=== PATIENT | female | born 1960 | race African-American/Black ===

== ENCOUNTER 2017-05-16 20:39 | Emergency (ER) | payer MEDICARE, OTHER ==
[2017-05-16 21:22] LABS: ADD MAN DIFF? NO
[2017-05-16 21:27] LABS: BASO # 0.1 x10^3/uL (0.0-0.2); BASO % 1 % (0-3); EOS # 0.2 x10^3/uL (0.0-0.7); EOS % 2 % (0-3); HEMATOCRIT 39.7 % (36.0-47.0); LYMPH % 27 % (24-48); MEAN CORPUSCULAR HEMOGLOBIN 28 pg (25-35); MEAN CORPUSCULAR HGB CONC 33 g/dL (31-37); MEAN CORPUSCULAR VOLUME 86 fL (79-100); MONO # 0.7 x10^3/uL (0.0-1.1); MONO % 6 % (0-9); NEUT # 7.1 x10^3uL (1.8-7.7); NEUT % 64 % (31-73); PLATELET COUNT 329 x10^3/uL (140-400); RED BLOOD COUNT 4.62 x10^6/uL (3.50-5.40); RED CELL DISTRIBUTION WIDTH 15.9 % (11.5-14.5); WHITE BLOOD COUNT 11.1 x10^3/uL (4.0-11.0)
[2017-05-16 21:32] LABS: ANION GAP 13 (6-14); BLOOD UREA NITROGEN 30 mg/dL (7-20); BUN/CREATININE RATIO 18 (6-20); CALCIUM 9.5 mg/dL (8.5-10.1); CARBON DIOXIDE 24 mmol/L (21-32); CHLORIDE 103 mmol/L (98-107); CREATININE 1.7 mg/dL (0.6-1.0); GFR 37.8; GLUCOSE 170 mg/dL (70-99); POTASSIUM 4.1 mmol/L (3.5-5.1); SODIUM 140 mmol/L (136-145)
[2017-05-16 21:39] LABS: ALBUMIN 3.6 g/dL (3.4-5.0); ALBUMIN/GLOBULIN RATIO 0.8 (1.0-1.7); ALK PHOS 127 U/L (46-116); ALT (SGPT) 18 U/L (14-59); AST (SGOT) 15 U/L (15-37); LIPASE 98 U/L (73-393); TOTAL BILIRUBIN 0.2 mg/dL (0.2-1.0)
[2017-05-16 21:41] LABS: TROPONINI 0.019 ng/mL (0.000-0.055)
[2017-05-16 21:46] LABS: CKMB INDEX 1.7 % (0-4); CKMB MASS 1.3 ng/mL (0.0-3.6); CREATINE KINASE 77 U/L (26-192)
[2017-05-16] MEDS: IV NORMAL SALINE 1000ML BAG 1,000 ML IV (21:48)
[2017-05-16] MEDS: ONDANSETRON PF 4 MG/2 ML VIAL. IV (21:49)
[2017-05-16] MEDS: fentaNYL PF VIAL 100 MCG/2 ML VIAL IV (21:51)
[2017-05-16 22:02] LABS: BILIRUBIN,URINE SMALL (NEG); GLUCOSE,URINE NEGATIVE (NEG); NITRITE,URINE NEGATIVE (NEG); PROTEIN,URINE NEGATIVE (NEG-TRACE)
[2017-05-16 22:13] LABS: CLARITY,URINE HAZY; COLOR,URINE DK YELLOW
[2017-05-16 22:16] LABS: BACTERIA,URINE MODERATE /HPF (0-FEW); HYALINE CASTS, URINE MODERATE /HPF; RBC,URINE 0 /HPF (0-2); SQUAMOUS EPITHELIAL CELL,UR MOD /LPF
== END 2017-05-16 22:50 | disposition home or self-care (01) ==
LOC: ER 20:39
DX: R10.11 Right upper quadrant pain (principal); K21.9 Gastro-esophageal reflux disease without esophagitis; I10 Essential (primary) hypertension; K58.9 Irritable bowel syndrome, unspecified; Z90.710 Acquired absence of both cervix and uterus; Z88.8 Allergy status to other drugs, medicaments and biological substances
CPT/HCPCS: 36415; 74176; 80053; 81001; 82553; 83690; 84484; 85025; 87086; 96361; 96374; 96375; 99285-25; J2405; J3010; J7030

== ENCOUNTER → 2017-05-22 | Outpatient (CLI) | payer MEDICARE, OTHER | END | disposition home or self-care (01) | LOC: US 09:24 | DX: K76.0 Fatty (change of) liver, not elsewhere classified (principal) | CPT/HCPCS: 76705 ==

== ENCOUNTER 2017-05-29 14:55 | Inpatient (IN) | payer OTHER, MEDICARE ==
[2017-05-29 16:24] LABS: BILIRUBIN,URINE SMALL (NEG); CLARITY,URINE CLEAR; COLOR,URINE YELLOW; GLUCOSE,URINE NEGATIVE (NEG); NITRITE,URINE NEGATIVE (NEG); PROTEIN,URINE NEGATIVE (NEG-TRACE)
[2017-05-29] MEDS: ONDANSETRON PF 4 MG/2 ML VIAL. IV ×2 (16:26→21:21)
[2017-05-29] MEDS: fentaNYL PF VIAL 100 MCG/2 ML VIAL IV ×2 (16:27→21:21)
[2017-05-29] MEDS: KETOROLAC 30 MG/ML INJ. IV (16:27)
[2017-05-29] MEDS: IV NORMAL SALINE 1000ML BAG 1,000 ML IV ×2 (16:28→17:53)
[2017-05-29 16:39] LABS: BACTERIA,URINE MODERATE /HPF (0-FEW); RBC,URINE 0 /HPF (0-2); SQUAMOUS EPITHELIAL CELL,UR MOD /LPF
[2017-05-29 16:52] LABS: ADD MAN DIFF? NO
[2017-05-29 16:53] LABS: BASO # 0.1 x10^3/uL (0.0-0.2); BASO % 1 % (0-3); EOS # 0.1 x10^3/uL (0.0-0.7); EOS % 1 % (0-3); HEMATOCRIT 41.5 % (36.0-47.0); HEMOGLOBIN 13.5 g/dL (12.0-15.5); LYMPH % 25 % (24-48); MEAN CORPUSCULAR HEMOGLOBIN 28 pg (25-35); MEAN CORPUSCULAR HGB CONC 33 g/dL (31-37); MEAN CORPUSCULAR VOLUME 87 fL (79-100); MONO % 9 % (0-9); NEUT % 66 % (31-73); PLATELET COUNT 354 x10^3/uL (140-400); RED BLOOD COUNT 4.79 x10^6/uL (3.50-5.40); RED CELL DISTRIBUTION WIDTH 15.7 % (11.5-14.5); WHITE BLOOD COUNT 12.2 x10^3/uL (4.0-11.0)
[2017-05-29 17:04] LABS: ANION GAP 11 (6-14); BLOOD UREA NITROGEN 41 mg/dL (7-20); BUN/CREATININE RATIO 21 (6-20); CALCIUM 9.5 mg/dL (8.5-10.1); CARBON DIOXIDE 26 mmol/L (21-32); CHLORIDE 102 mmol/L (98-107); GFR 31.3; GLUCOSE 97 mg/dL (70-99); POTASSIUM 4.3 mmol/L (3.5-5.1); SODIUM 139 mmol/L (136-145)
[2017-05-29 17:11] LABS: ALBUMIN 3.6 g/dL (3.4-5.0); ALBUMIN/GLOBULIN RATIO 0.8 (1.0-1.7); ALK PHOS 134 U/L (46-116); ALT (SGPT) 36 U/L (14-59); AST (SGOT) 29 U/L (15-37); LIPASE 124 U/L (73-393); MAGNESIUM 1.9 mg/dL (1.8-2.4); TOTAL BILIRUBIN 0.4 mg/dL (0.2-1.0); TOTAL PROTEIN 8.3 g/dL (6.4-8.2)
[2017-05-29 17:14] LABS: TROPONINI < 0.017 ng/mL (0.000-0.055)
[2017-05-29] MEDS ORDERED: cefTRIAXone SODIUM 2 GM in IV DEXTROSE 5% 100 ML IV (17:15)
[2017-05-29] MEDS: LACTOBACILLUS RHAMNOSUS GG 1 CAPSULE. PO (19:56)
[2017-05-30 04:46] LABS: ADD MAN DIFF? NO
[2017-05-30 04:52] LABS: BASO # 0.1 x10^3/uL (0.0-0.2); BASO % 1 % (0-3); EOS # 0.2 x10^3/uL (0.0-0.7); EOS % 2 % (0-3); HEMOGLOBIN 11.6 g/dL (12.0-15.5); LYMPH # 3.2 x10^3/uL (1.0-4.8); LYMPH % 34 % (24-48); MEAN CORPUSCULAR HEMOGLOBIN 29 pg (25-35); MEAN CORPUSCULAR HGB CONC 33 g/dL (31-37); MEAN CORPUSCULAR VOLUME 87 fL (79-100); MONO # 0.8 x10^3/uL (0.0-1.1); MONO % 8 % (0-9); NEUT # 5.4 x10^3uL (1.8-7.7); NEUT % 56 % (31-73); PLATELET COUNT 287 x10^3/uL (140-400); RED BLOOD COUNT 4.05 x10^6/uL (3.50-5.40); RED CELL DISTRIBUTION WIDTH 15.8 % (11.5-14.5); WHITE BLOOD COUNT 9.6 x10^3/uL (4.0-11.0)
[2017-05-30 05:21] LABS: ANION GAP 10 (6-14); BLOOD UREA NITROGEN 36 mg/dL (7-20); CALCIUM 8.5 mg/dL (8.5-10.1); CARBON DIOXIDE 23 mmol/L (21-32); CHLORIDE 107 mmol/L (98-107); CREATININE 1.7 mg/dL (0.6-1.0); GFR 37.8; GLUCOSE 95 mg/dL (70-99); POTASSIUM 4.1 mmol/L (3.5-5.1); SODIUM 140 mmol/L (136-145)
[2017-05-30] MEDS: LACTOBACILLUS RHAMNOSUS GG 1 CAPSULE. PO ×2 (07:58→21:17)
[2017-05-30] MEDS: IV NORMAL SALINE 1000ML BAG 1,000 ML IV ×2 (11:19→22:00)
[2017-05-30] MEDS: ONDANSETRON PF 4 MG/2 ML VIAL. IV (11:23)
[2017-05-30 11:29] LABS: SEDIMENTATION RATE 22 (0-25)
[2017-05-30] MEDS: SINCALIDE IV (15:10)
[2017-05-30] MEDS: NORMAL SALINE IV (15:10)
[2017-05-30] MEDS: levETIRAcetam 500 MG TABLET PO (17:17)
[2017-05-30] MEDS: cefTRIAXone IV Push 1 GM VIAL. IVP (17:18)
[2017-05-30] MEDS: oxyCODONE/APAP 5/325 1 TAB TABLET PO (18:33)
[2017-05-30] MEDS: GABAPENTIN 300 MG CAPSULE. PO (21:17)
[2017-05-30] MEDS: busPIRone 10 MG TABLET. PO (21:17)
[2017-05-30] MEDS: DICYCLOMINE HCL 10 MG CAPSULE PO (21:17)
[2017-05-31] MEDS: IV NORMAL SALINE 1000ML BAG 1,000 ML IV ×3 (06:12→21:24)
[2017-05-31] MEDS: busPIRone 10 MG TABLET. PO ×2 (07:51→20:48)
[2017-05-31] MEDS: PANTOPRAZOLE 40 MG TABLET.DR. PO (07:51)
[2017-05-31] MEDS: LACTOBACILLUS RHAMNOSUS GG 1 CAPSULE. PO ×2 (07:52→20:48)
[2017-05-31] MEDS: GABAPENTIN 300 MG CAPSULE. PO ×3 (07:52→20:47)
[2017-05-31] MEDS: DICYCLOMINE HCL 10 MG CAPSULE PO ×3 (07:52→20:47)
[2017-05-31] MEDS: levETIRAcetam 500 MG TABLET PO ×2 (07:52→20:47)
[2017-05-31 11:46] LABS: ADD MAN DIFF? NO
[2017-05-31] MEDS: ONDANSETRON PF 4 MG/2 ML VIAL. IV (11:51)
[2017-05-31 11:52] LABS: BASO % 0 % (0-3); EOS # 0.2 x10^3/uL (0.0-0.7); EOS % 3 % (0-3); HEMATOCRIT 34.9 % (36.0-47.0); HEMOGLOBIN 11.3 g/dL (12.0-15.5); LYMPH % 30 % (24-48); MEAN CORPUSCULAR HEMOGLOBIN 28 pg (25-35); MEAN CORPUSCULAR HGB CONC 32 g/dL (31-37); MEAN CORPUSCULAR VOLUME 87 fL (79-100); MONO # 0.7 x10^3/uL (0.0-1.1); MONO % 10 % (0-9); NEUT # 3.9 x10^3uL (1.8-7.7); NEUT % 58 % (31-73); PLATELET COUNT 290 x10^3/uL (140-400); RED BLOOD COUNT 4.04 x10^6/uL (3.50-5.40); RED CELL DISTRIBUTION WIDTH 15.4 % (11.5-14.5); WHITE BLOOD COUNT 6.8 x10^3/uL (4.0-11.0)
[2017-05-31 12:04] LABS: ALBUMIN 2.7 g/dL (3.4-5.0); ALBUMIN/GLOBULIN RATIO 0.7 (1.0-1.7); ALK PHOS 103 U/L (46-116); ALT (SGPT) 27 U/L (14-59); ANION GAP 9 (6-14); AST (SGOT) 24 U/L (15-37); BLOOD UREA NITROGEN 31 mg/dL (7-20); BUN/CREATININE RATIO 21 (6-20); CALCIUM 8.1 mg/dL (8.5-10.1); CARBON DIOXIDE 23 mmol/L (21-32); CHLORIDE 109 mmol/L (98-107); CREATININE 1.5 mg/dL (0.6-1.0); GFR 43.6; GLUCOSE 96 mg/dL (70-99); POTASSIUM 4.9 mmol/L (3.5-5.1); SODIUM 141 mmol/L (136-145); TOTAL BILIRUBIN 0.2 mg/dL (0.2-1.0); TOTAL PROTEIN 6.4 g/dL (6.4-8.2)
[2017-05-31] MEDS: POLYETHYLENE GLYCOL 3350 17 GM PACKET. PO (14:13)
[2017-05-31] MEDS ORDERED: MAGNESIUM HYDROXIDE 2,400 MG/30 ML ORAL.SUSP. PO (18:15)
[2017-05-31] MEDS: oxyCODONE/APAP 5/325 1 TAB TABLET PO (19:16)
[2017-05-31] MEDS: SENNOSIDES/DOCUSATE 8.6/50MG TABLET. PO (20:47)
[2017-06-01] MEDS: ONDANSETRON PF 4 MG/2 ML VIAL. IV ×2 (02:46→15:55)
[2017-06-01] MEDS: oxyCODONE/APAP 5/325 1 TAB TABLET PO ×2 (03:06→22:03)
[2017-06-01] MEDS: IV NORMAL SALINE 1000ML BAG 1,000 ML IV (05:06)
[2017-06-01 06:34] LABS: ADD MAN DIFF? NO
[2017-06-01 06:41] LABS: BASO # 0.1 x10^3/uL (0.0-0.2); BASO % 1 % (0-3); EOS # 0.2 x10^3/uL (0.0-0.7); EOS % 3 % (0-3); HEMATOCRIT 32.8 % (36.0-47.0); HEMOGLOBIN 10.6 g/dL (12.0-15.5); LYMPH # 2.6 x10^3/uL (1.0-4.8); LYMPH % 35 % (24-48); MEAN CORPUSCULAR HEMOGLOBIN 28 pg (25-35); MEAN CORPUSCULAR HGB CONC 32 g/dL (31-37); MEAN CORPUSCULAR VOLUME 88 fL (79-100); MONO # 0.8 x10^3/uL (0.0-1.1); MONO % 10 % (0-9); NEUT # 3.9 x10^3uL (1.8-7.7); NEUT % 52 % (31-73); PLATELET COUNT 271 x10^3/uL (140-400); RED BLOOD COUNT 3.73 x10^6/uL (3.50-5.40); RED CELL DISTRIBUTION WIDTH 15.8 % (11.5-14.5); WHITE BLOOD COUNT 7.5 x10^3/uL (4.0-11.0)
[2017-06-01 07:08] LABS: ANION GAP 8 (6-14); BLOOD UREA NITROGEN 31 mg/dL (7-20); CALCIUM 8.2 mg/dL (8.5-10.1); CARBON DIOXIDE 24 mmol/L (21-32); CHLORIDE 112 mmol/L (98-107); CREATININE 1.4 mg/dL (0.6-1.0); GFR 47.2; GLUCOSE 148 mg/dL (70-99); POTASSIUM 4.4 mmol/L (3.5-5.1); SODIUM 144 mmol/L (136-145)
[2017-06-01] MEDS: GABAPENTIN 300 MG CAPSULE. PO ×3 (08:28→21:57)
[2017-06-01] MEDS: DICYCLOMINE HCL 10 MG CAPSULE PO ×3 (08:28→22:02)
[2017-06-01] MEDS: LIDOCAINE (700MG/PATCH) PATCH. TD (08:29)
[2017-06-01] MEDS: LACTOBACILLUS RHAMNOSUS GG 1 CAPSULE. PO ×2 (08:29→21:57)
[2017-06-01] MEDS: busPIRone 10 MG TABLET. PO ×2 (08:29→22:03)
[2017-06-01] MEDS: PANTOPRAZOLE 40 MG TABLET.DR. PO (08:29)
[2017-06-01] MEDS: SENNOSIDES/DOCUSATE 8.6/50MG TABLET. PO ×2 (08:30→21:58)
[2017-06-01] MEDS: POLYETHYLENE GLYCOL 3350 17 GM PACKET. PO (08:30)
[2017-06-01] MEDS: BISACODYL 5 MG TABLET.DR. PO (10:30)
[2017-06-01] MEDS: levETIRAcetam 500 MG TABLET PO ×2 (10:30→21:57)
[2017-06-01 11:58] LABS: % SAT IRON 16 % (15-34); IRON,SERUM 38 ug/dL (50-170)
[2017-06-01] MEDS ORDERED: methylPREDNISolone ACETATE 80 MG/ML VIAL. INT ART (17:00)
[2017-06-01] MEDS ORDERED: BUPIVACAINE MPF 0.25% 10 ML VIAL. INT ART (17:00)
[2017-06-01] MEDS: PATCH REMOVAL. MC (22:05)
[2017-06-02] MEDS: ONDANSETRON PF 4 MG/2 ML VIAL. IV ×2 (04:15→12:20)
[2017-06-02 05:17] LABS: ADD MAN DIFF? NO
[2017-06-02 05:29] LABS: BASO # 0.1 x10^3/uL (0.0-0.2); BASO % 1 % (0-3); EOS # 0.2 x10^3/uL (0.0-0.7); EOS % 2 % (0-3); HEMOGLOBIN 10.8 g/dL (12.0-15.5); LYMPH # 2.9 x10^3/uL (1.0-4.8); LYMPH % 37 % (24-48); MEAN CORPUSCULAR HEMOGLOBIN 29 pg (25-35); MEAN CORPUSCULAR HGB CONC 33 g/dL (31-37); MEAN CORPUSCULAR VOLUME 87 fL (79-100); MONO # 0.8 x10^3/uL (0.0-1.1); MONO % 10 % (0-9); NEUT # 3.9 x10^3uL (1.8-7.7); NEUT % 50 % (31-73); PLATELET COUNT 281 x10^3/uL (140-400); RED CELL DISTRIBUTION WIDTH 15.5 % (11.5-14.5); WHITE BLOOD COUNT 7.8 x10^3/uL (4.0-11.0)
[2017-06-02 06:21] LABS: ALBUMIN 2.7 g/dL (3.4-5.0); ALBUMIN/GLOBULIN RATIO 0.7 (1.0-1.7); ALK PHOS 104 U/L (46-116); ALT (SGPT) 33 U/L (14-59); ANION GAP 9 (6-14); AST (SGOT) 23 U/L (15-37); BLOOD UREA NITROGEN 22 mg/dL (7-20); BUN/CREATININE RATIO 16 (6-20); CALCIUM 8.4 mg/dL (8.5-10.1); CARBON DIOXIDE 24 mmol/L (21-32); CHLORIDE 109 mmol/L (98-107); CREATININE 1.4 mg/dL (0.6-1.0); GFR 47.2; GLUCOSE 112 mg/dL (70-99); POTASSIUM 4.4 mmol/L (3.5-5.1); SODIUM 142 mmol/L (136-145); TOTAL BILIRUBIN 0.3 mg/dL (0.2-1.0); TOTAL PROTEIN 6.4 g/dL (6.4-8.2)
[2017-06-02] MEDS: LACTOBACILLUS RHAMNOSUS GG 1 CAPSULE. PO (08:44)
[2017-06-02] MEDS: POLYETHYLENE GLYCOL 3350 17 GM PACKET. PO (08:44)
[2017-06-02] MEDS: LIDOCAINE (700MG/PATCH) PATCH. TD (08:44)
[2017-06-02] MEDS: GABAPENTIN 300 MG CAPSULE. PO ×2 (08:44→15:43)
[2017-06-02] MEDS: PANTOPRAZOLE 40 MG TABLET.DR. PO (08:45)
[2017-06-02] MEDS: CYCLOBENZAPRINE 10 MG TABLET. PO (08:45)
[2017-06-02] MEDS: DICYCLOMINE HCL 10 MG CAPSULE PO ×2 (08:45→15:43)
[2017-06-02] MEDS: BISACODYL 5 MG TABLET.DR. PO (08:45)
[2017-06-02] MEDS: levETIRAcetam 500 MG TABLET PO (08:45)
[2017-06-02] MEDS: busPIRone 10 MG TABLET. PO (08:45)
[2017-06-02] MEDS: oxyCODONE/APAP 5/325 1 TAB TABLET PO (09:37)
[2017-06-02] MEDS: SENNOSIDES/DOCUSATE 8.6/50MG TABLET. PO (09:37)
[2017-06-02] MEDS: OXYBUTYNIN CHLORIDE 5 MG TABLET PO (15:42)
[2017-06-02] MEDS ORDERED: LUBIPROSTONE 8 MCG CAPSULE PO (17:00)
== END 2017-06-02 17:00 | disposition home health service (06) | DRG 871 ==
LOC: ER 14:55 → 5 SOUTH 17:15
DX: A41.9 Sepsis, unspecified organism (principal); N17.0 Acute kidney failure with tubular necrosis; K56.609 Unspecified intestinal obstruction, unspecified as to partial versus complete obstruction; E66.9 Obesity, unspecified; D63.8 Anemia in other chronic diseases classified elsewhere; S83.242A Other tear of medial meniscus, current injury, left knee, initial encounter; N39.0 Urinary tract infection, site not specified; I12.9 Hypertensive chronic kidney disease with stage 1 through stage 4 chronic kidney disease, or unspecified chronic kidney disease; E78.5 Hyperlipidemia, unspecified; K21.9 Gastro-esophageal reflux disease without esophagitis; F31.9 Bipolar disorder, unspecified; F41.9 Anxiety disorder, unspecified; G40.909 Epilepsy, unspecified, not intractable, without status epilepticus; G89.29 Other chronic pain; I25.10 Atherosclerotic heart disease of native coronary artery without angina pectoris; N18.9 Chronic kidney disease, unspecified; K29.50 Unspecified chronic gastritis without bleeding; K57.90 Diverticulosis of intestine, part unspecified, without perforation or abscess without bleeding; K63.5 Polyp of colon; M17.0 Bilateral primary osteoarthritis of knee; M51.36 Other intervertebral disc degeneration, lumbar region; K76.9 Liver disease, unspecified; M51.37 Other intervertebral disc degeneration, lumbosacral region; X58.XXXA Exposure to other specified factors, initial encounter; Z87.11 Personal history of peptic ulcer disease; Z86.73 Personal history of transient ischemic attack (TIA), and cerebral infarction without residual deficits; Z82.49 Family history of ischemic heart disease and other diseases of the circulatory system; Z87.891 Personal history of nicotine dependence; Z90.710 Acquired absence of both cervix and uterus; Y92.89 Other specified places as the place of occurrence of the external cause; Y99.8 Other external cause status; Z88.8 Allergy status to other drugs, medicaments and biological substances; Z68.39 Body mass index [BMI] 39.0-39.9, adult
CPT/HCPCS: 36415; 71045; 73565; 73721; 74176; 76770; 78226; 80048; 80053; 81001; 83540; 83550; 83690; 83735; 84484; 85025; 85651; 87086; 96374; 96375; 97110-GP; 97116-GP; 97162-GP; A9537; J0690; J0696; J1885; J2405; J2805; J3010; J7030